=== PATIENT | female | born 1965 | race Caucasian/White ===

== ENCOUNTER 2017-01-03 12:27 | Inpatient (IN) | payer BC ==
[~2017-01-03] VITALS: Ht 172.7 cm; Wt 142.4 kg
[2017-01-03] MEDS ORDERED: SODIUM CHLORIDE 0.9% 1000ML 1,000 ML IV STA (12:47)
[2017-01-03] MEDS ORDERED: ONDANSETRON INJ 2 MG/ML 2 ML VIAL IV STA (12:47)
[2017-01-03] MEDS ORDERED: CEFOXITIN 2000MG/60 ML D5W IV STA (12:50)
[2017-01-03] MEDS ORDERED: FENTANYL CITRATE INJ 50 MCG/1 ML 2 ML VIAL IV PRN (13:00)
--- NOTE | 2017-01-03 13:16 | DIAGNOSTIC IMAGING REPORT ---
CHEST ONE VIEW PORTABLE CLINICAL HISTORY: Pain, radiating to the abdomen. COMPARISON STUDY: No previous studies for comparison. FINDINGS: The cardiac and mediastinal contours are normal. There is no evidence of focal pulmonary consolidation. There is no evidence of failure. No pleural effusions are visualized.[ No free intraperitoneal air is visualized. IMPRESSION: No active disease in the chest. Electronically signed by: Matthieu Fair M.D. 01/03/2017 1:14 PM Dictated Date/Time: 01/03/2017 1:14 PM
[2017-01-03 13:35] LABS: BASO % 0.2 %; BASO ABS # 0.02 K/uL (0-0.2); COMPLETE YES; EOS % 0.3 %; HEMATOCRIT 40.3 % (37-47); IG% 0.2 %; LYMPH % 16.4 %; LYMPH ABS # 1.79 K/uL (1.2-3.4); MEAN CELL VOLUME 86.3 fL (80-100); MEAN CORPUSCULAR HEMOGLOBIN 29.6 pg (25-34); MEAN CORPUSCULAR HGB CONC 34.2 g/dl (32-36); MEAN PLATELET VOLUME 9.4 fL (7.4-10.4); MONO % 6.1 %; NEUT % 76.8 %; PLATELET COUNT 249 K/uL (130-400); RED BLOOD COUNT 4.67 M/uL (4.2-5.4); WHITE BLOOD COUNT 10.94 K/uL (4.8-10.8)
[2017-01-03 13:42] LABS: ALT/SGPT 322 U/L (12-78); BLOOD UREA NITROGEN 15 mg/dl (7-18); BUN/CREATININE RATIO 16.5 (10-20); CARBON DIOXIDE 28 mmol/L (21-32); CHLORIDE 103 mmol/L (98-107); CREATININE 0.88 mg/dl (0.60-1.20); GLUCOSE 103 mg/dl (70-99); POTASSIUM 3.9 mmol/L (3.5-5.1); SODIUM 136 mmol/L (136-145)
[2017-01-03] MEDS ORDERED: OMEP10CA4 PO (13:46)
[2017-01-03] MEDS ORDERED: LISI10TA PO (13:46)
[2017-01-03 13:48] LABS: ALKALINE PHOSPHATASE 126 U/L (45-117); AMYLASE 653 U/L (25-115); AST/SGOT 494 U/L (15-37); CKMB/CK RATIO 0.7 (0-3.0)
[2017-01-03 13:53] LABS: PROTHROMBIN TIME (PATIENT) 10.2 SECONDS (9.0-12.0)
[2017-01-03] MEDS ORDERED: FAMOTIDINE IV INJ 20 MG in DEXTROSE 5% 100ML 100 ML IV STA (14:14)
[2017-01-03] MEDS ORDERED: PANTOprazole INJ 40 MG in SYRINGE 0 ML IV ONE (14:15)
[2017-01-03 14:20] LABS: PREG INTERNAL NEGATIVE QC NEG CLEAR BACKGROUND; PREG INTERNAL POSITIVE QC POS CONTROL LINE
--- NOTE | 2017-01-03 14:43 | EMERGENCY ROOM VISIT NOTE ---
History Report prepared by Frances: Bobo Kelley Under the Supervision of: Dr. Donovan Crews D.O. First contact with patient: 12:42 Chief Complaint: REFERRED BY DOCTOR Stated Complaint: REF'D BY DR FOR GALLBLADDER History of Present Illness The patient is a 51 year old female who presents to the Emergency Room with complaints of constant upper abdominal pain beginning last night. She had an ultrasound today and was referred to the ED for concern of possible gallbladder attack. She states that she has been having gall blader attack-like symptoms for about seven months. The patient has been taking Omeprazole for her symptoms which usually improves her pain. She also complains of right sided back pain. She vomited once last night and once this morning. The patient has a history of and appendectomy. Her LNMP was two weeks ago. She denies any shortness of breath. Source of History: patient Onset: Last night Position: abdomen (upper) Timing: constant Modifying Factors (Relieving): other (Omeprazole) Associated Symptoms: + vomiting, + back pain (right sided), No SOB Review of Systems See HPI for pertinent positives & negatives. A total of 10 systems reviewed and were otherwise negative. Past Medical & Surgical Medical Problems: (1) HTN (hypertension) Surgical Problems: (1) Hx of appendectomy (2) Previous section Family History No pertinent family history stated. Social History Smoking Status: Never Smoker Current/Historical Medications Scheduled Lisinopril (Prinivil), 10 MG PO DAILY Omeprazole (Prilosec), 10 MG PO DAILY Allergies Coded Allergies: Aspirin (Verified Allergy, Unknown, PT CAN TAKE IBUPROFEN AT HOME, 01/03/17 ) Penicillins (Verified Allergy, Unknown, 01/03/17) Physical Exam Vital Signs Date Time Temp Pulse Resp B/P (MAP) Pulse Ox O2 Delivery O2 Flow Rate FiO2 01/03/17 13:02 88 01/03/17 12:39 36.8 76 20 151/88 96 Room Air Physical Exam GENERAL: Patient is awake, alert, and in no acute distress. Patient is resting comfortably and showing no signs of anxiety EYES: The conjunctivae are clear. The pupils are round and reactive. EARS, NOSE, MOUTH AND THROAT: The nose is without any evidence of any deformity. Mucous membranes are moist tongue is midline NECK: The neck is nontender and supple. RESPIRATORY: Normal respiratory effort is noted there is no evidence of wheezing rhonchi or rales CARDIOVASCULAR: Regular rate and rhythm noted there no murmurs rubs or gallops normal S1 normal S2 GASTROINTESTINAL: Mildly distended but soft. RUQ tenderness to palpation. No guarding or rigidity noted. MUSCULOSKELETAL/EXTREMITIES: There is no evidence of gross deformity full range of motion is noted in the hips and shoulders SKIN: There is no obvious evidence of any rash. There are no petechiae, pallor or cyanosis noted. NEUROLOGIC: Patient is awake alert and oriented x3. Medical Decision & Procedures ER Provider Diagnostic Interpretation: X-ray results as stated below per interpretation by me and the radiologist. CHEST ONE VIEW PORTABLE FINDINGS: The cardiac and mediastinal contours are normal. There is no evidence of focal pulmonary consolidation. There is no evidence of failure. No pleural effusions are visualized.[ No free intraperitoneal air is visualized. IMPRESSION: No active disease in the chest. Electronically signed by: Matthieu Fair M.D. 01/03/2017 1:14 PM Laboratory Results 01/03/17 13:06 Red Blood Count 4.67, Mean Corpuscular Volume 86.3, Mean Corpuscular Hemoglobin 29.6, Mean Corpuscular Hemoglobin Concent 34.2, Mean Platelet Volume 9.4, Neutrophils (%) (Auto) 76.8, Lymphocytes (%) (Auto) 16.4, Monocytes (%) (Auto) 6.1, Eosinophils (%) (Auto) 0.3, Basophils (%) (Auto) 0.2, Neutrophils # (Auto) 8.41, Lymphocytes # (Auto) 1.79, Monocytes # (Auto) 0.67, Eosinophils # (Auto) 0.03, Basophils # (Auto) 0.02 01/03/17 13:06 Test 01/03/17 13:06 White Blood Count 10.94 K/uL (4.8-10.8) Red Blood Count 4.67 M/uL (4.2-5.4) Hemoglobin 13.8 g/dL (12.0-16.0) Hematocrit 40.3 % (37-47) Mean Corpuscular Volume 86.3 fL (80-100) Mean Corpuscular Hemoglobin 29.6 pg (25-34) Mean Corpuscular Hemoglobin Concent 34.2 g/dl (32-36) Platelet Count 249 K/uL (130-400) Mean Platelet Volume 9.4 fL (7.4-10.4) Neutrophils (%) (Auto) 76.8 % Lymphocytes (%) (Auto) 16.4 % Monocytes (%) (Auto) 6.1 % Eosinophils (%) (Auto) 0.3 % Basophils (%) (Auto) 0.2 % Neutrophils # (Auto) 8.41 K/uL (1.4-6.5) Lymphocytes # (Auto) 1.79 K/uL (1.2-3.4) Monocytes # (Auto) 0.67 K/uL (0.11-0.59) Eosinophils # (Auto) 0.03 K/uL (0-0.5) Basophils # (Auto) 0.02 K/uL (0-0.2) RDW Standard Deviation 41.7 fL (36.4-46.3) RDW Coefficient of Variation 13.2 % (11.5-14.5) Immature Granulocyte % (Auto) 0.2 % Immature Granulocyte # (Auto) 0.02 K/uL (0.00-0.02) Prothrombin Time 10.2 SECONDS (9.0-12.0) Prothromb Time International Ratio 1.0 (0.9-1.1) Activated Partial Thromboplast Time 26.1 SECONDS (21.0-31.0) Partial Thromboplastin Ratio 1.0 Anion Gap 5.0 mmol/L (3-11) Est Creatinine Clear Calc Drug Dose 116.3 ml/min Estimated GFR () 89.4 Estimated GFR (Non- 77.2 BUN/Creatinine Ratio 16.5 (10-20) Calcium Level 9.0 mg/dl (8.5-10.1) Total Bilirubin 2.0 mg/dl (0.2-1) Direct Bilirubin 1.2 mg/dl (0-0.2) Aspartate Amino Transf (AST/SGOT) 494 U/L (15-37) Alanine Aminotransferase (ALT/SGPT) 322 U/L (12-78) Alkaline Phosphatase 126 U/L (45-117) Total Creatine Kinase 177 U/L (26-192) Creatine Kinase MB 1.2 ng/ml (0.5-3.6) Creatine Kinase MB Ratio 0.7 (0-3.0) Troponin I < 0.015 ng/ml (0-0.045) Total Protein 7.4 gm/dl (6.4-8.2) Albumin 3.5 gm/dl (3.4-5.0) Amylase Level 653 U/L (25-115) Lipase 8805 U/L (73-393) Human Chorionic Gonadotropin, Qual NEG (NEG) Laboratory results per my review. Medications Administered Medications (Trade) Dose Ordered Sig/Tang Route Start Time Stop Time Status Last Admin Dose Admin Fentanyl Citrate (Fentanyl Inj) 100 mcg Q20M PRN IV 01/03/17 13:00 01/17/17 12:59 01/03/17 13:30 100 MCG Sodium Chloride 1,000 ml @ 999 mls/hr Q1H1M STAT IV 01/03/17 12:47 01/03/17 13:47 DC 01/03/17 13:24 999 MLS/HR Ondansetron HCl (Zofran Inj) 4 mg NOW STAT IV 01/03/17 12:47 01/03/17 12:50 DC 01/03/17 13:30 4 MG Cefoxitin Sodium (Mefoxin 2000mg/ 60 ml D5W) 2,000 mg NOW STAT IV 01/03/17 12:50 01/03/17 12:51 DC 01/03/17 13:30 2,000 MG ECG Indication: abdominal pain Rate (beats per minute): 65 Rhythm: normal sinus Findings: no acute ischemic change, no ectopy Comparison ECG Date: no prior available ED Course 1245: The patient was evaluated in room A9B. A complete history and physical examination were performed. 1247: Ordered Zofran Inj 4 mg IV, NSS 1,000 ml @ 999 mls/hr IV. 1250: Ordered Mefoxin 2000 mg/60 mL D5W 2000 mg IV. 1300: Ordered Fentanyl Inj 100 mcg IV. 1414: Ordered Famotidine 20 mg/Dextrose 102 mL @ 200 mL/hr IV, Pantoprazole Sodium 40 mg/Syringe 10 mL @ 5 mL/min IV. Medical Decision Differential diagnosis: Etiologies such as appendicitis, diverticulitis, PUD, biliary pathology, UTI, pancreatitis, obstruction, mesenteric ischemia, aortic pathology, infections, inflammatory bowel disease, renal colic, as well as others were entertained. Nursing notes reviewed. Patient's ultrasound which was done earlier today was also reviewed. The patient is a 51-year-old female who has had intermittent right-sided abdominal pain for the last few months. She was seen and worked up for this previously but no definite diagnosis can be found. Initially she was felt to be suffering from peptic ulcer disease. She was seen at the [facility] today and was sent to the emergency department after her ultrasound revealed signs of cholecystitis. The patient was treated with IV fluids IV pain medicine and IV antiemetics. She was also given IV antibiotic. On subsequent reevaluation she was feeling much better. I discussed the patient's laboratory and radiographic studies with her. She was also found have signs of pancreatitis on laboratory studies. Her pain was significantly improved. Her common bile duct on the ultrasound was not enlarged so I think this could represent a recently passed gallstone. This would explain with the patient is feeling much better. I discussed the patient's condition with the on-call general surgeon. I also discussed his case with the on-call [facility] hospitalist. They have agreed to evaluate the patient in the emergency apartment for further management and disposition. The patient may require further studies such as an MRCP or ERCP to further evaluate for common bile duct abnormality prior to cholecystectomy. Consults Time Called: 1250 Consulting Physician: Dr. Kennedy -General Surgery Returned Call: 1250 I discussed the patient's case with Dr. Kennedy. He recommends consultation after receiving laboratory work. 1413: I spoke with Dr. Kennedy. He recommends admission to the hospital and he will consult on the patient. Additional Consults: Time Called: 1420 Consulted Physician: Dr. Ugarte -[facility] Returned Call: [phone] Additional Comments: I discussed the patient's case with Dr. Ugarte. The patient will be evaluated for further management. Impression Primary Impression: RUQ abdominal pain Additional Impressions: Pancreatitis Cholecystitis Scribe Attestation The scribe's documentation has been prepared under my direction and personally reviewed by me in its entirety. I confirm that the note above accurately reflects all work, treatment, procedures, and medical decision making performed by me. Departure Information Dispostion Being Evaluated By Hospitalist Referrals Sandy Shoemaker M.D. (PCP) Patient Instructions My [facility] Problem Qualifiers Additional Impressions: Pancreatitis Chronicity: acute Pancreatitis type: biliary Acute pancreatitis complication: unspecified Qualified Codes: K85.10 - Biliary acute pancreatitis without necrosis or infection
[2017-01-03] MEDS ORDERED: MAGNESIUM HYDROXIDE SUSP 30 ML UDC PO PRN (14:45)
[2017-01-03] MEDS ORDERED: ONDANSETRON INJ 2 MG/ML 2 ML VIAL IV PRN (14:45)
[2017-01-03] MEDS ORDERED: MoRPHine SULFATE 4 MG/ML 1 ML CARP\\VIAL IV PRN (14:45)
[2017-01-03] MEDS ORDERED: ALUMINUM/MAGNESIUM/SIMETH (MAALOX MAX) 30 ML UDC PO PRN (14:45)
--- NOTE | 2017-01-03 15:31 | HISTORY & PHYSICAL EXAMINATION ---
DATE OF ADMISSION: 01/03/2017 CHIEF COMPLAINT: Right upper quadrant abdominal pain. HISTORY OF PRESENT ILLNESS: This is a 51-year-old female with past medical history significant for hypertension, morbid obesity, presents with right upper quadrant abdominal pain. The patient says since she ate a cheeseburger last night she noticed significant right upper quadrant abdominal pain. She took her omeprazole but the pain did not go away. It was about 10/10 in severity, radiating to her back associated with nausea and vomited 3 times. She went to family doctor today where ultrasound was done which showed gallstones and possible cholecystitis and she was advised to come to the ER. Currently, pain is better. Denies any fever or chills. She was short of breath at onset of pain. Denies any chest pain, no headaches, no blurred vision, no dizziness, no sore throat. Normal bowel and bladder movements. No skin rash, no swelling in the legs. The patient says she had a similar kind of attack in May when she was in [facility]. At that time labs were done which was unremarkable and she was told she has peptic ulcer disease. She was prescribed omeprazole and then she had a couple more attacks, but they were not as severe as last one she had last night. Currently, she is resting comfortably and hemodynamically stable. ALLERGIES: ASPIRIN AND PENICILLIN. PAST MEDICAL HISTORY: As mentioned above. PAST SURGICAL HISTORY: , cervical colposcopy, ligation of the oviduct, appendectomy. MEDICATIONS: The patient is on lisinopril 10 mg p.o. daily, omeprazole 20 mg p.o. daily. FAMILY HISTORY: Significant for father had heart disorder. Mother had mild CA. Father stroke, sister has history of bipolar. SOCIAL HISTORY: . No smoking history. Alcohol occasionally. No drug abuse. REVIEW OF SYMPTOMS: As per HPI. Rest of review of symptoms negative. PHYSICAL EXAMINATION: GENERAL: The patient is morbidly obese, not in distress. VITAL SIGNS: Temperature 36.8, pulse 88, respiratory rate 20, blood pressure 151/88, oxygen 96% on room air. HEAD, EYES, EARS, NOSE, AND THROAT: No pallor, no icterus. Pupils equal, round, and reactive to light. NECK: No JVD, no neck masses, no carotid bruits. CARDIOVASCULAR: S1, S2, heart regular rate and rhythm, no murmur, no gallop. RESPIRATORY SYSTEM: Normal AP diameter. No accessory muscle use. No wheezing, no crackles. ABDOMEN: Soft, bowel sounds present. Right upper quadrant and epigastric tenderness present. No guarding, no rigidity, no distention. CENTRAL NERVOUS SYSTEM: Cranial nerves II-XII grossly intact. Nonfocal. EXTREMITIES: No edema, chronic lower extremity edema seen. LABORATORY DATA: Sodium 136, potassium 3.9, chloride 103, bicarb 28, BUN 15, creatinine 0.8, serum glucose 103, calcium 9, total bilirubin 2, direct bilirubin 1.2, AST 494, ALT 322, alkaline phosphatase 126. Total creatine kinase 127. Troponin I less than 0.015, amylase 655, lipase 3805. WBC 10.9, hemoglobin 13.8, hematocrit 40.3, platelets 249. PT 10.2, INR 1, PTT 26.1. CHEST X-RAY: No acute disease in the chest. EKG: Normal sinus rhythm with rate of 65. No acute ST changes seen. Ultrasound done as outpatient no unofficial report, but has cholelithiasis and gallbladder wall thickening, acute cholecystitis needs excluded. ASSESSMENT AND PLAN: A 51-year-old female who presents with right upper quadrant pain with probable acute cholecystitis. 1. Acute cholecystitis, ultrasound done as outpatient showed cholelithiasis with gallbladder thickening, possible cholecystitis and also most likely gallbladder pancreatitis. Lipase is elevated at 8,000. Will admit to medical floor. Place on aggressive IV fluids, IV antiemetics, and IV pain medications, IV Cipro and Flagyl for cholecystitis, n.p.o. except meds. We will also do MRCP to rule out any common bile duct stone and consult general surgery. Monitor on the medical floor. 3. History of hypertension. Continue lisinopril. Will monitor the blood pressure. 4. Gastroesophageal reflux disease. Will place on IV Pepcid. 5. Deep venous thrombosis prophylaxis. SCDs and heparin subQ for now. 6. Disposition. Admit to medical floor. Expect to discharge home and follow with the family doctor. LEVEL 1 FULL CODE. MTDD
--- NOTE | 2017-01-03 15:58 | DIAGNOSTIC IMAGING REPORT ---
MRCP CLINICAL HISTORY: Gallstone pancreatitis. Elevated LFTs. Evaluate for common bile duct calculus. COMPARISON STUDY: Ultrasound study dated 01/03/2017 FINDINGS: Multiple gallstones are visualized. There is gallbladder wall thickening and pericholecystic fluid. The findings are suggestive of acute cholecystitis. No common bile duct calculi are visualized. There is no intrahepatic biliary ductal dilatation. There is no pancreatic ductal dilatation. Mild pancreatic edema is suspected suggesting mild pancreatitis. The spleen is enlarged measuring 12.3 cm. The common bile duct measures 5 mm. IMPRESSION: 1. Cholelithiasis, gallbladder wall thickening, and pericholecystic fluid. The findings are suggestive of acute cholecystitis. 2. No evidence of intrarectal hepatic biliary ductal dilatation. The common buttock measures 5 mm 3. No common bile duct calculi identified 4. Normal caliber pancreatic duct. Possible pancreatic edema. This may indicate pancreatitis 5. Mild splenomegaly Electronically signed by: Matthieu Fair M.D. 01/03/2017 3:56 PM Dictated Date/Time: 01/03/2017 3:52 PM
[2017-01-03 16:22] VITALS: O2SAT 97; Ht 172.7 cm; Wt 142.4 kg
[2017-01-03] MEDS: LACTATED RINGER'S 1000ML 1,000 ML IV SCH ×2 (16:43→19:45)
[2017-01-03] MEDS: METRONIDAZOLE / NSS 500 MG in PREMIXED NSS 100 ML IV SCH ×2 (16:44→23:30)
--- NOTE | 2017-01-03 17:17 | Medical Consult ---
Consultation Date of Consultation: Jan 03, 2017. Attending Physician: José Ugarte MD Reason for Consultation: gallstone pancreatitis History of Present Illness 51 year old female admitted for gallstone pancreatitis. She started having pain yesterday afternoon in her RUQ and epigastrium. She developed nausea and vomiting. Went to [facility] this morning, US ordered and revealed cholelithiasis with cholecystitis. Sent to ED and labs revealed pancreatitis and tbili and LFT elevation. She is now feeling a little better. MRCP was performed and showed no choledocholithiasis but evidence of cholecystitis and pancreatitis. She reports 4-5 prior episodes of post prandial pain, usually associated with fatty or spicy foods. Denies fevers. She at [employer] for lunch and a cheeseburger for dinner prior to this episode. Past Medical/Surgical History Past Medical History: HTN, obesity Past Surgical History: open appendectomy, Family History noncontributory Social History Smoking Status: Never Smoker Allergies Coded Allergies: Aspirin (Verified Allergy, Unknown, PT CAN TAKE IBUPROFEN AT HOME, 01/03/17 ) Penicillins (Verified Allergy, Unknown, 01/03/17) Home Medications Active Reported Prilosec (Omeprazole) 10 Mg Cap 10 Mg PO DAILY Prinivil (Lisinopril) 10 Mg Tab 10 Mg PO DAILY Current Inpatient Medications Current Inpatient Medications Medications (Trade) Dose Ordered Sig/Tang Route Start Time Stop Time Status Last Admin Dose Admin Acetaminophen (Tylenol Tab) 650 mg Q4H PRN PO 01/03/17 14:45 02/02/17 14:44 Al Hydrox/Mg Hydrox/Simethicone (Maalox Max Susp) 15 ml Q4H PRN PO 01/03/17 14:45 02/02/17 14:44 Magnesium Hydroxide (Milk Of Magnesia Susp) 30 ml Q6H PRN PO 01/03/17 14:45 02/02/17 14:44 Ondansetron HCl (Zofran Inj) 4 mg Q6H PRN IV 01/03/17 14:45 02/02/17 14:44 Heparin Sodium (Porcine) (Heparin Sq 5000 Unit/0.5ml) 5,000 unit Q12H SQ 01/03/17 18:00 02/02/17 17:59 Lactated Ringer's 1,000 ml @ 200 mls/hr Q5H IV 01/03/17 14:45 02/02/17 14:44 01/03/17 16:43 200 MLS/HR Morphine Sulfate (MoRPHine SULFATE INJ) 3 mg Q3HWA PRN IV 01/03/17 14:45 01/17/17 14:44 Famotidine 20 mg/ Dextrose 102 ml @ 200 mls/hr Q12H IV 01/04/17 04:00 02/03/17 03:59 Ciprofloxacin/ Dextrose 400 mg/ Prmx 200 ml @ 100 mls/hr Q12@0600,1800 IV 01/03/17 18:00 01/13/17 17:59 Metronidazole 500 mg/Prmx 100 ml @ 100 mls/hr Q8@0000,0800,1600 IV 01/03/17 16:24 01/13/17 16:23 01/03/17 16:44 100 MLS/HR Lisinopril (Zestril Tab) 10 mg DAILY PO 01/04/17 09:00 02/03/17 08:59 Review of Systems Constitutional: No fever, No chills, No sweats, No weight loss, No weakness, No fatigue, No problem reported Eyes: No worsening of vision, No eye pain, No redness, No discharge, No diplopia, No problem reported ENT: No hearing loss, No unusual epistaxis, No nasal symptoms, No sore throat, No tinnitus, No dental problems, No trouble swallowing, No problem reported Respiratory: No cough, No sputum, No wheezing, No shortness of breath, No dyspnea on exertion, No dyspnea at rest, No hemoptysis, No problem reported Cardiovascular: No chest pain, No orthopnea, No PND, No edema, No claudication , No palpitations, No problem reported Abdomen: + pain, + nausea, + vomiting, No diarrhea, No constipation Musculoskeletal: No joint pain, No muscle pain, No swelling, No calf pain, No problem reported Neurologic: No memory loss, No paralysis, No weakness, No numbness/tingling, No vertigo, No balance problems, No problem reported Endocrine: No fatigue, No excessive thirst, No excessive urination, No problem reported Hematologic / Lymphatic: No abnormal bleeding/bruising, No clotting problems, No swollen lymph nodes, No night sweats, No problem reported Integumentary: No rash, No itch, No new/changing skin lesions, No color change , No bleeding, No problem reported Allergic / Immunologic: No environmental allergies, No seasonal allergies, No pet sensitivities, No food allergies, No hives, No frequent infections, No poor healing, No prolonged convalescence, No problem reported Physical Exam Date Time Temp Pulse Resp B/P (MAP) Pulse Ox O2 Delivery O2 Flow Rate FiO2 01/03/17 16:22 97 Room Air 01/03/17 16:01 64 20 124/73 97 01/03/17 14:20 64 20 151/98 98 Room Air 01/03/17 13:02 88 01/03/17 12:39 36.8 76 20 151/88 96 Room Air General Appearance: WD/WN, no apparent distress, + obese Head: normocephalic, atraumatic Eyes: normal inspection, PERRL, EOMI ENT: normal ENT inspection, hearing grossly normal Neck: supple, no adenopathy, thyroid normal Respiratory/Chest: chest non-tender, lungs clear, normal breath sounds, no respiratory distress Cardiovascular: regular rate, rhythm, no edema, no gallop, no JVD, no murmur Abdomen/GI: normal bowel sounds, soft, + tenderness, + pertinent finding (TTP in RUQ and epigastrium, positive House's sign. 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, no motor/sensory deficits, alert, oriented x 3 Skin: normal color, warm/dry, no rash Lymphatic: no adenopathy Laboratory Results Last 24 Hours Test 01/03/17 13:06 White Blood Count 10.94 K/uL Red Blood Count 4.67 M/uL Hemoglobin 13.8 g/dL Hematocrit 40.3 % Mean Corpuscular Volume 86.3 fL Mean Corpuscular Hemoglobin 29.6 pg Mean Corpuscular Hemoglobin Concent 34.2 g/dl Platelet Count 249 K/uL Mean Platelet Volume 9.4 fL Neutrophils (%) (Auto) 76.8 % Lymphocytes (%) (Auto) 16.4 % Monocytes (%) (Auto) 6.1 % Eosinophils (%) (Auto) 0.3 % Basophils (%) (Auto) 0.2 % Neutrophils # (Auto) 8.41 K/uL Lymphocytes # (Auto) 1.79 K/uL Monocytes # (Auto) 0.67 K/uL Eosinophils # (Auto) 0.03 K/uL Basophils # (Auto) 0.02 K/uL RDW Standard Deviation 41.7 fL RDW Coefficient of Variation 13.2 % Immature Granulocyte % (Auto) 0.2 % Immature Granulocyte # (Auto) 0.02 K/uL Prothrombin Time 10.2 SECONDS Prothromb Time International Ratio 1.0 Activated Partial Thromboplast Time 26.1 SECONDS Partial Thromboplastin Ratio 1.0 Sodium Level 136 mmol/L Potassium Level 3.9 mmol/L Chloride Level 103 mmol/L Carbon Dioxide Level 28 mmol/L Anion Gap 5.0 mmol/L Blood Urea Nitrogen 15 mg/dl Creatinine 0.88 mg/dl Est Creatinine Clear Calc Drug Dose 116.3 ml/min Estimated GFR () 89.4 Estimated GFR (Non- 77.2 BUN/Creatinine Ratio 16.5 Random Glucose 103 mg/dl Calcium Level 9.0 mg/dl Total Bilirubin 2.0 mg/dl Direct Bilirubin 1.2 mg/dl Aspartate Amino Transf (AST/SGOT) 494 U/L Alanine Aminotransferase (ALT/SGPT) 322 U/L Alkaline Phosphatase 126 U/L Total Creatine Kinase 177 U/L Creatine Kinase MB 1.2 ng/ml Creatine Kinase MB Ratio 0.7 Troponin I < 0.015 ng/ml Total Protein 7.4 gm/dl Albumin 3.5 gm/dl Amylase Level 653 U/L Lipase 8805 U/L Human Chorionic Gonadotropin, Qual NEG BILIARY ULTRASOUND CLINICAL HISTORY: Upper quadrant abdominal pain COMPARISON STUDY: No previous studies for comparison. FINDINGS: The pancreas appears normal as visualized. No focal hepatic masses were evident. There is no right-sided hydronephrosis. There is no intra or extrahepatic biliary ductal dilatation. The common bile duct measured 5 mm. Multiple gallstones were visualized. There is mild gallbladder wall thickening. IMPRESSION: Cholelithiasis and gallbladder wall thickening. In the setting of right upper quadrant abdominal pain, acute cholecystitis cannot be excluded. If deemed clinically necessary, correlation with a nuclear medicine hepatobiliary study could be obtained in follow-up to assess cystic duct patency Electronically signed by: Matthieu Fair M.D. 01/03/2017 11:55 AM Dictated Date/Time: 01/03/2017 11:53 AM MRCP CLINICAL HISTORY: Gallstone pancreatitis. Elevated LFTs. Evaluate for common bile duct calculus. COMPARISON STUDY: Ultrasound study dated 01/03/2017 FINDINGS: Multiple gallstones are visualized. There is gallbladder wall thickening and pericholecystic fluid. The findings are suggestive of acute cholecystitis. No common bile duct calculi are visualized. There is no intrahepatic biliary ductal dilatation. There is no pancreatic ductal dilatation. Mild pancreatic edema is suspected suggesting mild pancreatitis. The spleen is enlarged measuring 12.3 cm. The common bile duct measures 5 mm. IMPRESSION: 1. Cholelithiasis, gallbladder wall thickening, and pericholecystic fluid. The findings are suggestive of acute cholecystitis. 2. No evidence of intrarectal hepatic biliary ductal dilatation. The common buttock measures 5 mm 3. No common bile duct calculi identified 4. Normal caliber pancreatic duct. Possible pancreatic edema. This may indicate pancreatitis 5. Mild splenomegaly Electronically signed by: Matthieu Fair M.D. 01/03/2017 3:56 PM Dictated Date/Time: 01/03/2017 3:52 PM Assessment & Plan 51 year old female with cholelithiasis, cholecystitis, and mild gallstone pancreatitis. She also had elevated bilirubin and LFT"s, but no ductal dilitation and MRCP without choledocholithiasis, so likely she passed a small stone. Her symptoms are improving. Plan appreciate medicine admission npo, ivf's abx Await resolution of symptoms from pancreatitis and downtrending of liver enzymes plan for laparoscopic cholecystectomy with possible intraoperative cholangiogram this stay or in short interval follow up risks of surgery were discussed to include but not limited to bleeding, infection, damage to common bile duct, retained stone, bile leak, conversion to open, need for future or more extensive surgery, damage to surrounding structures, and risks of anesthesia plan of care discussed, all questions answered, patient expressed understanding and agrees to proceed with plan of care as stated surgery will follow, call with questions or concerns Camilo Kennedy, DO
[2017-01-03] MEDS: HEPARIN SOD 5000 UNIT/0.5 ML CARP SQ SCH (18:00)
[2017-01-03] MEDS: CIPROFLOXACIN / D5W 400 MG in PREMIXED IN D5W 200 ML IV SCH (18:08)
[2017-01-03] MEDS: ACETAMINOPHEN 325 MG TAB PO PRN (18:12)
[2017-01-03 23:20] VITALS: BP 112/69; PULSE 64; TEMP 36.5; O2SAT 95
[2017-01-04] MEDS: LACTATED RINGER'S 1000ML 1,000 ML IV SCH ×5 (00:50→22:20)
[2017-01-04 01:00] LABS: URINE APPEARANCE CLEAR (CLEAR); URINE BILIRUBIN NEG (NEG); URINE COLOR DK YELLOW; URINE NITRITE NEG (NEG); URINE SPECIFIC GRAVITY 1.022 (1.000-1.030); UROBILINOGEN NEG (NEG)
[2017-01-04 01:04] LABS: MANUAL MICROSCOPIC REQUIRED? NO; REVIEW REQ? NO
[2017-01-04] MEDS: FAMOTIDINE IV INJ 20 MG in DEXTROSE 5% 100ML 100 ML IV SCH ×2 (04:26→16:41)
[2017-01-04] MEDS: CIPROFLOXACIN / D5W 400 MG in PREMIXED IN D5W 200 ML IV SCH ×2 (05:31→19:16)
[2017-01-04] MEDS: HEPARIN SOD 5000 UNIT/0.5 ML CARP SQ SCH ×2 (05:36→19:18)
[2017-01-04] MEDS: ACETAMINOPHEN 325 MG TAB PO PRN ×3 (05:37→19:21)
[2017-01-04 07:01] LABS: BASO % 0.4 %; BASO ABS # 0.02 K/uL (0-0.2); COMPLETE YES; EOS % 1.6 %; HEMATOCRIT 36.8 % (37-47); IG% 0.4 %; MEAN CELL VOLUME 88.5 fL (80-100); MEAN PLATELET VOLUME 9.3 fL (7.4-10.4); MONO % 6.7 %; NEUT % 63.9 %; PLATELET COUNT 192 K/uL (130-400); RED BLOOD COUNT 4.16 M/uL (4.2-5.4); WHITE BLOOD COUNT 5.55 K/uL (4.8-10.8)
[2017-01-04 07:14] VITALS: BP 132/77; PULSE 69; TEMP 36.7; O2SAT 95
[2017-01-04] MEDS: METRONIDAZOLE / NSS 500 MG in PREMIXED NSS 100 ML IV SCH ×2 (08:59→15:43)
[2017-01-04 09:05] LABS: BUN/CREATININE RATIO 13.7 (10-20); CALCIUM 8.4 mg/dl (8.5-10.1); CREATININE 0.87 mg/dl (0.60-1.20); MAGNESIUM 2.2 mg/dl (1.8-2.4)
[2017-01-04] MEDS: LISINOPRIL 10 MG TAB PO SCH (09:57)
--- NOTE | 2017-01-04 11:39 | Surgery Progress Note ---
Surgery Progress Note Date of Service Jan 04, 2017. Subjective 51 year old female with cholelithiasis with cholecystitis and gallstone pancreatitis. MRCP negative yesterday. Labs and symptoms improving today, still some epigastric discomfort. Otherwise feels better. Objective Vital Signs: Date Time Temp Pulse Resp B/P (MAP) Pulse Ox O2 Delivery O2 Flow Rate FiO2 01/04/17 07:15 Room Air 01/04/17 07:14 36.7 69 18 132/77 (95) 95 Room Air 01/03/17 23:28 Room Air 01/03/17 23:20 36.5 64 16 112/69 (83) 95 Room Air 01/03/17 20:20 Room Air 01/03/17 16:22 97 Room Air 01/03/17 16:01 64 20 124/73 97 01/03/17 14:20 64 20 151/98 98 Room Air 01/03/17 13:02 88 01/03/17 12:39 36.8 76 20 151/88 96 Room Air General Appearance: WD/WN, no apparent distress, + obese Head: normocephalic, atraumatic Neck: supple, no adenopathy, thyroid normal, no JVD, no carotid bruits, trachea midline Respiratory/Chest: chest non-tender, lungs clear, normal breath sounds, no respiratory distress, no accessory muscle use Cardiovascular: regular rate, rhythm, no edema, no gallop, no JVD, no murmur Abdomen: normal bowel sounds, non distended, soft, no organomegaly, no pulsatile mass, + tenderness (mild epigastric and RUQ tenderness, improved from yesterday), + pertinent finding (RLQ scar) Extremities: normal range of motion, non-tender, normal inspection, no pedal edema, no calf tenderness, normal capillary refill, pelvis stable Laboratory Results: Results Past 24 Hours Test 01/03/17 13:06 01/04/17 00:50 01/04/17 06:11 Range/Units White Blood Count 10.94 5.55 4.8-10.8 K/uL Red Blood Count 4.67 4.16 4.2-5.4 M/uL Hemoglobin 13.8 12.5 12.0-16.0 g/dL Hematocrit 40.3 36.8 37-47 % Mean Corpuscular Volume 86.3 88.5 80-100 fL Mean Corpuscular Hemoglobin 29.6 30.0 25-34 pg Mean Corpuscular Hemoglobin Concent 34.2 34.0 32-36 g/dl Platelet Count 249 192 130-400 K/uL Mean Platelet Volume 9.4 9.3 7.4-10.4 fL Neutrophils (%) (Auto) 76.8 63.9 % Lymphocytes (%) (Auto) 16.4 27.0 % Monocytes (%) (Auto) 6.1 6.7 % Eosinophils (%) (Auto) 0.3 1.6 % Basophils (%) (Auto) 0.2 0.4 % Neutrophils # (Auto) 8.41 3.55 1.4-6.5 K/uL Lymphocytes # (Auto) 1.79 1.50 1.2-3.4 K/uL Monocytes # (Auto) 0.67 0.37 0.11-0.59 K/uL Eosinophils # (Auto) 0.03 0.09 0-0.5 K/uL Basophils # (Auto) 0.02 0.02 0-0.2 K/uL RDW Standard Deviation 41.7 43.2 36.4-46.3 fL RDW Coefficient of Variation 13.2 13.5 11.5-14.5 % Immature Granulocyte % (Auto) 0.2 0.4 % Immature Granulocyte # (Auto) 0.02 0.02 0.00-0.02 K/uL Prothrombin Time 10.2 9.0-12.0 SECONDS Prothromb Time International Ratio 1.0 0.9-1.1 Activated Partial Thromboplast Time 26.1 21.0-31.0 SECONDS Partial Thromboplastin Ratio 1.0 Sodium Level 136 140 136-145 mmol/L Potassium Level 3.9 4.0 3.5-5.1 mmol/L Chloride Level 103 105 98-107 mmol/L Carbon Dioxide Level 28 31 21-32 mmol/L Anion Gap 5.0 4.0 3-11 mmol/L Blood Urea Nitrogen 15 12 7-18 mg/dl Creatinine 0.88 0.87 0.60-1.20 mg/dl Est Creatinine Clear Calc Drug Dose 116.3 117.7 ml/min Estimated GFR () 89.4 90.7 Estimated GFR (Non- 77.2 78.2 BUN/Creatinine Ratio 16.5 13.7 10-20 Random Glucose 103 108 70-99 mg/dl Calcium Level 9.0 8.4 8.5-10.1 mg/dl Total Bilirubin 2.0 0.7 0.2-1 mg/dl Direct Bilirubin 1.2 0.2 0-0.2 mg/dl Aspartate Amino Transf (AST/SGOT) 494 197 15-37 U/L Alanine Aminotransferase (ALT/SGPT) 322 231 12-78 U/L Alkaline Phosphatase 126 117 45-117 U/L Total Creatine Kinase 177 26-192 U/L Creatine Kinase MB 1.2 0.5-3.6 ng/ml Creatine Kinase MB Ratio 0.7 0-3.0 Troponin I < 0.015 0-0.045 ng/ml Total Protein 7.4 6.4 6.4-8.2 gm/dl Albumin 3.5 3.1 3.4-5.0 gm/dl Amylase Level 653 25-115 U/L Lipase 8805 765 73-393 U/L Human Chorionic Gonadotropin, Qual NEG NEG Urine Color DK YELLOW Urine Appearance CLEAR CLEAR Urine pH 6.0 4.5-7.5 Urine Specific [place] 1.022 1.000-1.030 Urine Protein NEG NEG Urine Glucose (UA) NEG NEG Urine Ketones TRACE NEG Urine Occult Blood NEG NEG Urine Nitrite NEG NEG Urine Bilirubin NEG NEG Urine Urobilinogen NEG NEG Urine Leukocyte Esterase NEG NEG Magnesium Level 2.2 1.8-2.4 mg/dl Assessment & Plan 51 year old female with cholelithiasis, cholecystitis, and mild gallstone pancreatitis. Symptoms and labs improving. Plan appreciate medicine management clear liquids today, NPO after midnight abx plan for laparoscopic cholecystectomy with possible intraoperative cholangiogram tomorrow risks of surgery were discussed to include but not limited to bleeding, infection, damage to common bile duct, retained stone, bile leak, conversion to open, need for future or more extensive surgery, damage to surrounding structures, and risks of anesthesia plan of care discussed, all questions answered, patient expressed understanding and agrees to proceed with plan of care as stated surgery will follow, call with questions or concerns Camilo Kennedy, DO
--- NOTE | 2017-01-04 14:11 | Progress Note ---
Internal Med Progress Note Date of Service: Jan 04, 2017. Provider Documentation: SUBJECTIVE: resting comfortably no nausea or abdominal pain afebrile no sob ok for surgery in am OBJECTIVE: Vital Signs-as noted below Exam: General-alert and awake. Not in distress. Obese ENT-normal hearing Neck-no neck masses Lungs-cta b/l no wheezing no crackles Heart-s1 and s2 heard regular rhythm, no murmurs Abdomen-soft bowel sounds present non tender no distension Extremities no erythema Neuro-alert and awake moves extremities Lab data as noted below. ASSESSMENT & PLAN: A 51-year-old female who presents with right upper quadrant pain with probable acute cholecystitis. 1. Acute cholecystitis, Gall stone pancreatitis ultrasound done as outpatient showed cholelithiasis with gallbladder thickening, possible cholecystitis and also most likely gallbladder pancreatitis. Lipase is elevated at 8,000. MRCP shows no cbd stone but consistent with cholecystitis and gall stone pancreatitis symptoms improved iv fluids, iv abx, antiemetics plan for lap darvin in am 3. History of hypertension. Continue lisinopril. Stable. Will monitor the blood pressure. 4. Gastroesophageal reflux disease. Will place on IV Pepcid. 5. Deep venous thrombosis prophylaxis. SCDs and heparin subQ for now. 6. Disposition. Monitor in medical floor. Expect to discharge home and follow with the family doctor. LEVEL 1 FULL CODE. DISPOSITION monitor in medical floor to be determined Vital Signs: Date Time Temp Pulse Resp B/P (MAP) Pulse Ox O2 Delivery O2 Flow Rate FiO2 01/04/17 07:15 Room Air 01/04/17 07:14 36.7 69 18 132/77 (95) 95 Room Air 01/03/17 23:28 Room Air 01/03/17 23:20 36.5 64 16 112/69 (83) 95 Room Air 01/03/17 20:20 Room Air 01/03/17 16:22 97 Room Air 01/03/17 16:01 64 20 124/73 97 01/03/17 14:20 64 20 151/98 98 Room Air Lab Results: Results Past 24 Hours Test 01/04/17 00:50 01/04/17 06:11 Range/Units Urine Color DK YELLOW Urine Appearance CLEAR CLEAR Urine pH 6.0 4.5-7.5 Urine Specific [place] 1.022 1.000-1.030 Urine Protein NEG NEG Urine Glucose (UA) NEG NEG Urine Ketones TRACE NEG Urine Occult Blood NEG NEG Urine Nitrite NEG NEG Urine Bilirubin NEG NEG Urine Urobilinogen NEG NEG Urine Leukocyte Esterase NEG NEG White Blood Count 5.55 4.8-10.8 K/uL Red Blood Count 4.16 4.2-5.4 M/uL Hemoglobin 12.5 12.0-16.0 g/dL Hematocrit 36.8 37-47 % Mean Corpuscular Volume 88.5 80-100 fL Mean Corpuscular Hemoglobin 30.0 25-34 pg Mean Corpuscular Hemoglobin Concent 34.0 32-36 g/dl Platelet Count 192 130-400 K/uL Mean Platelet Volume 9.3 7.4-10.4 fL Neutrophils (%) (Auto) 63.9 % Lymphocytes (%) (Auto) 27.0 % Monocytes (%) (Auto) 6.7 % Eosinophils (%) (Auto) 1.6 % Basophils (%) (Auto) 0.4 % Neutrophils # (Auto) 3.55 1.4-6.5 K/uL Lymphocytes # (Auto) 1.50 1.2-3.4 K/uL Monocytes # (Auto) 0.37 0.11-0.59 K/uL Eosinophils # (Auto) 0.09 0-0.5 K/uL Basophils # (Auto) 0.02 0-0.2 K/uL RDW Standard Deviation 43.2 36.4-46.3 fL RDW Coefficient of Variation 13.5 11.5-14.5 % Immature Granulocyte % (Auto) 0.4 % Immature Granulocyte # (Auto) 0.02 0.00-0.02 K/uL Sodium Level 140 136-145 mmol/L Potassium Level 4.0 3.5-5.1 mmol/L Chloride Level 105 98-107 mmol/L Carbon Dioxide Level 31 21-32 mmol/L Anion Gap 4.0 3-11 mmol/L Blood Urea Nitrogen 12 7-18 mg/dl Creatinine 0.87 0.60-1.20 mg/dl Est Creatinine Clear Calc Drug Dose 117.7 ml/min Estimated GFR () 90.7 Estimated GFR (Non- 78.2 BUN/Creatinine Ratio 13.7 10-20 Random Glucose 108 70-99 mg/dl Calcium Level 8.4 8.5-10.1 mg/dl Magnesium Level 2.2 1.8-2.4 mg/dl Total Bilirubin 0.7 0.2-1 mg/dl Direct Bilirubin 0.2 0-0.2 mg/dl Aspartate Amino Transf (AST/SGOT) 197 15-37 U/L Alanine Aminotransferase (ALT/SGPT) 231 12-78 U/L Alkaline Phosphatase 117 45-117 U/L Total Protein 6.4 6.4-8.2 gm/dl Albumin 3.1 3.4-5.0 gm/dl Lipase 765 73-393 U/L
[2017-01-04 15:09] VITALS: BP 129/81; PULSE 65; TEMP 37.1; O2SAT 94
[2017-01-04 16:30] VITALS: O2SAT 94
[2017-01-04 23:35] VITALS: BP 123/74; PULSE 59; TEMP 36.8; O2SAT 94
[2017-01-05] MEDS: METRONIDAZOLE / NSS 500 MG in PREMIXED NSS 100 ML IV SCH ×3 (00:14→16:39)
[2017-01-05] MEDS: ACETAMINOPHEN 325 MG TAB PO PRN (00:14)
[2017-01-05] MEDS: LACTATED RINGER'S 1000ML 1,000 ML IV SCH ×4 (02:26→20:32)
[2017-01-05] MEDS: FAMOTIDINE IV INJ 20 MG in DEXTROSE 5% 100ML 100 ML IV SCH ×2 (04:06→17:21)
[2017-01-05] MEDS: HEPARIN SOD 5000 UNIT/0.5 ML CARP SQ SCH ×2 (05:48→18:48)
[2017-01-05] MEDS: CIPROFLOXACIN / D5W 400 MG in PREMIXED IN D5W 200 ML IV SCH ×2 (05:55→19:30)
[2017-01-05 06:13] LABS: BASO % 0.4 %; BASO ABS # 0.02 K/uL (0-0.2); COMPLETE YES; EOS % 2.3 %; IG% 0.2 %; LYMPH % 35.5 %; LYMPH ABS # 1.89 K/uL (1.2-3.4); MEAN CORPUSCULAR HEMOGLOBIN 29.3 pg (25-34); MEAN CORPUSCULAR HGB CONC 32.5 g/dl (32-36); MONO % 7.7 %; NEUT % 53.9 %; PLATELET COUNT 181 K/uL (130-400); WHITE BLOOD COUNT 5.32 K/uL (4.8-10.8)
[2017-01-05 07:08] LABS: BUN/CREATININE RATIO 9.3 (10-20); CALCIUM 8.2 mg/dl (8.5-10.1); CREATININE 0.84 mg/dl (0.60-1.20); MAGNESIUM 2.3 mg/dl (1.8-2.4); POTASSIUM 3.8 mmol/L (3.5-5.1)
[2017-01-05 07:26] VITALS: BP 120/78; PULSE 58; TEMP 36.7; O2SAT 93
[2017-01-05] MEDS: LISINOPRIL 10 MG TAB PO SCH (09:00)
--- NOTE | 2017-01-05 10:35 | Surgery Progress Note ---
Surgery Progress Note Date of Service Jan 05, 2017. Subjective 51 year old female with cholelithiasis with cholecystitis and gallstone pancreatitis. MRCP negative. Labs and symptoms continue to improve, no pain. Objective Vital Signs: Date Time Temp Pulse Resp B/P (MAP) Pulse Ox O2 Delivery O2 Flow Rate FiO2 01/05/17 07:26 36.7 58 18 120/78 (92) 93 Room Air 01/05/17 00:05 Room Air 01/04/17 23:35 36.8 59 16 123/74 (90) 94 Room Air 01/04/17 16:30 94 Room Air 01/04/17 15:09 37.1 65 18 129/81 (97) 94 Room Air General Appearance: WD/WN, no apparent distress, + obese Head: normocephalic, atraumatic Neck: supple, no adenopathy, thyroid normal, no JVD, no carotid bruits, trachea midline Respiratory/Chest: chest non-tender, lungs clear, normal breath sounds, no respiratory distress, no accessory muscle use Cardiovascular: regular rate, rhythm, no edema, no gallop, no JVD, no murmur Abdomen: normal bowel sounds, non tender, non distended, soft, no organomegaly , no pulsatile mass Extremities: normal range of motion, non-tender, normal inspection, no pedal edema, no calf tenderness, normal capillary refill, pelvis stable Laboratory Results: Results Past 24 Hours Test 01/05/17 05:43 Range/Units White Blood Count 5.32 4.8-10.8 K/uL Red Blood Count 4.00 4.2-5.4 M/uL Hemoglobin 11.7 12.0-16.0 g/dL Hematocrit 36.0 37-47 % Mean Corpuscular Volume 90.0 80-100 fL Mean Corpuscular Hemoglobin 29.3 25-34 pg Mean Corpuscular Hemoglobin Concent 32.5 32-36 g/dl Platelet Count 181 130-400 K/uL Mean Platelet Volume 9.0 7.4-10.4 fL Neutrophils (%) (Auto) 53.9 % Lymphocytes (%) (Auto) 35.5 % Monocytes (%) (Auto) 7.7 % Eosinophils (%) (Auto) 2.3 % Basophils (%) (Auto) 0.4 % Neutrophils # (Auto) 2.87 1.4-6.5 K/uL Lymphocytes # (Auto) 1.89 1.2-3.4 K/uL Monocytes # (Auto) 0.41 0.11-0.59 K/uL Eosinophils # (Auto) 0.12 0-0.5 K/uL Basophils # (Auto) 0.02 0-0.2 K/uL RDW Standard Deviation 44.1 36.4-46.3 fL RDW Coefficient of Variation 13.4 11.5-14.5 % Immature Granulocyte % (Auto) 0.2 % Immature Granulocyte # (Auto) 0.01 0.00-0.02 K/uL Sodium Level 141 136-145 mmol/L Potassium Level 3.8 3.5-5.1 mmol/L Chloride Level 106 98-107 mmol/L Carbon Dioxide Level 30 21-32 mmol/L Anion Gap 5.0 3-11 mmol/L Blood Urea Nitrogen 8 7-18 mg/dl Creatinine 0.84 0.60-1.20 mg/dl Est Creatinine Clear Calc Drug Dose 121.9 ml/min Estimated GFR () 94.6 Estimated GFR (Non- 81.6 BUN/Creatinine Ratio 9.3 10-20 Random Glucose 100 70-99 mg/dl Calcium Level 8.2 8.5-10.1 mg/dl Magnesium Level 2.3 1.8-2.4 mg/dl Total Bilirubin 0.5 0.2-1 mg/dl Direct Bilirubin 0.1 0-0.2 mg/dl Aspartate Amino Transf (AST/SGOT) 72 15-37 U/L Alanine Aminotransferase (ALT/SGPT) 145 12-78 U/L Alkaline Phosphatase 92 45-117 U/L Total Protein 6.1 6.4-8.2 gm/dl Albumin 2.9 3.4-5.0 gm/dl Assessment & Plan 51 year old female with cholelithiasis, cholecystitis, and mild gallstone pancreatitis. Symptoms and labs improved. Plan for cholecystectomy today, however if schedule does not permit, then may perform later in the week, possibly as outpatient. Plan plan for laparoscopic cholecystectomy with possible intraoperative cholangiogram today. risks of surgery were discussed to include but not limited to bleeding, infection, damage to common bile duct, retained stone, bile leak, conversion to open, need for future or more extensive surgery, damage to surrounding structures, and risks of anesthesia plan of care discussed, all questions answered, patient expressed understanding and agrees to proceed with plan of care as stated surgery will follow, call with questions or concerns Camilo Kennedy, DO
--- NOTE | 2017-01-05 13:10 | Anesthesiology Progress Note ---
Anesthesia Progress Note Date of Service Jan 05, 2017. Progress Notes This is a 51 y/o w obese female w/cholecystitis/cholelithiasis for a laparoscopic cholecystectomy.PMHx is significant for morbid obesity,possible PASHA ,HTN,GERD(stable), and borderline anemia.Discussed anesthesia w/pt,risks vs benefits,all questions answered.Informed consent obtained. ASA 3
--- NOTE | 2017-01-05 14:29 | Progress Note ---
Internal Med Progress Note Date of Service: Jan 05, 2017. Provider Documentation: SUBJECTIVE: resting comfortably denies abdominal pain or nausea no fevers no sob plan for surgery tomorrow OBJECTIVE: Vital Signs-as noted below Exam: General-alert and awake. Not in distress. Obese ENT-normal hearing Neck-no neck masses Lungs-cta b/l no wheezing no crackles Heart-s1 and s2 heard regular rhythm, no murmurs Abdomen-soft bowel sounds present non tender no distension Extremities no erythema Neuro-alert and awake moves extremities Lab data as noted below. ASSESSMENT & PLAN: A 51-year-old female who presents with right upper quadrant pain with probable acute cholecystitis found to have cholecystitis, elevated lfts and gall stone pancreatitis.Plan for surgery in am. 1. Acute cholecystitis, Gall stone pancreatitis ultrasound done as outpatient showed cholelithiasis with gallbladder thickening, possible cholecystitis and also most likely gallbladder pancreatitis. Lipase is elevated at 8,000. MRCP shows no cbd stone but consistent with cholecystitis and gall stone pancreatitis symptoms improved iv fluids, iv abx, antiemetics plan for lap darvin tomorrow plan for clears today and npo after midnight 3. History of hypertension. Continue lisinopril. Stable. Will monitor the blood pressure. 4. Gastroesophageal reflux disease. on IV Pepcid. 5. Deep venous thrombosis prophylaxis. SCDs and heparin subQ for now. 6. Disposition. Monitor in medical floor. Expect to discharge home and follow with the family doctor. LEVEL 1 FULL CODE. Plan for d/c after lap cholecystectomy Vital Signs: Date Time Temp Pulse Resp B/P (MAP) Pulse Ox O2 Delivery O2 Flow Rate FiO2 01/05/17 15:34 36.7 59 19 130/80 (97) 92 Room Air 01/05/17 07:26 36.7 58 18 120/78 (92) 93 Room Air 01/05/17 07:10 Room Air 01/05/17 00:05 Room Air 01/04/17 23:35 36.8 59 16 123/74 (90) 94 Room Air Lab Results: Results Past 24 Hours Test 01/05/17 05:43 Range/Units White Blood Count 5.32 4.8-10.8 K/uL Red Blood Count 4.00 4.2-5.4 M/uL Hemoglobin 11.7 12.0-16.0 g/dL Hematocrit 36.0 37-47 % Mean Corpuscular Volume 90.0 80-100 fL Mean Corpuscular Hemoglobin 29.3 25-34 pg Mean Corpuscular Hemoglobin Concent 32.5 32-36 g/dl Platelet Count 181 130-400 K/uL Mean Platelet Volume 9.0 7.4-10.4 fL Neutrophils (%) (Auto) 53.9 % Lymphocytes (%) (Auto) 35.5 % Monocytes (%) (Auto) 7.7 % Eosinophils (%) (Auto) 2.3 % Basophils (%) (Auto) 0.4 % Neutrophils # (Auto) 2.87 1.4-6.5 K/uL Lymphocytes # (Auto) 1.89 1.2-3.4 K/uL Monocytes # (Auto) 0.41 0.11-0.59 K/uL Eosinophils # (Auto) 0.12 0-0.5 K/uL Basophils # (Auto) 0.02 0-0.2 K/uL RDW Standard Deviation 44.1 36.4-46.3 fL RDW Coefficient of Variation 13.4 11.5-14.5 % Immature Granulocyte % (Auto) 0.2 % Immature Granulocyte # (Auto) 0.01 0.00-0.02 K/uL Sodium Level 141 136-145 mmol/L Potassium Level 3.8 3.5-5.1 mmol/L Chloride Level 106 98-107 mmol/L Carbon Dioxide Level 30 21-32 mmol/L Anion Gap 5.0 3-11 mmol/L Blood Urea Nitrogen 8 7-18 mg/dl Creatinine 0.84 0.60-1.20 mg/dl Est Creatinine Clear Calc Drug Dose 121.9 ml/min Estimated GFR () 94.6 Estimated GFR (Non- 81.6 BUN/Creatinine Ratio 9.3 10-20 Random Glucose 100 70-99 mg/dl Calcium Level 8.2 8.5-10.1 mg/dl Magnesium Level 2.3 1.8-2.4 mg/dl Total Bilirubin 0.5 0.2-1 mg/dl Direct Bilirubin 0.1 0-0.2 mg/dl Aspartate Amino Transf (AST/SGOT) 72 15-37 U/L Alanine Aminotransferase (ALT/SGPT) 145 12-78 U/L Alkaline Phosphatase 92 45-117 U/L Total Protein 6.1 6.4-8.2 gm/dl Albumin 2.9 3.4-5.0 gm/dl
[2017-01-05 15:34] VITALS: BP 130/80; PULSE 59; TEMP 36.7; O2SAT 92
[2017-01-05 23:00] VITALS: BP 129/75; PULSE 52; TEMP 36.8; O2SAT 97
[2017-01-06] VITALS (7 sets, daily range): BP systolic 115–168; BP diastolic 70–91; PULSE 61–86; TEMP 36.7–37.1; O2SAT 93–98
[2017-01-06] MEDS: METRONIDAZOLE / NSS 500 MG in PREMIXED NSS 100 ML IV SCH ×2 (00:06→10:48)
[2017-01-06] MEDS: FAMOTIDINE IV INJ 20 MG in DEXTROSE 5% 100ML 100 ML IV SCH (04:12)
[2017-01-06] MEDS: LACTATED RINGER'S 1000ML 1,000 ML IV SCH ×2 (05:41→10:37)
[2017-01-06] MEDS: CIPROFLOXACIN / D5W 400 MG in PREMIXED IN D5W 200 ML IV SCH (05:41)
[2017-01-06] MEDS: HEPARIN SOD 5000 UNIT/0.5 ML CARP SQ SCH (05:42)
[2017-01-06 06:18] LABS: BASO % 0.3 %; BASO ABS # 0.02 K/uL (0-0.2); COMPLETE YES; EOS % 2.8 %; HEMATOCRIT 37.8 % (37-47); IG% 0.2 %; LYMPH % 32.8 %; LYMPH ABS # 2.08 K/uL (1.2-3.4); MEAN CELL VOLUME 89.8 fL (80-100); MEAN CORPUSCULAR HEMOGLOBIN 29.2 pg (25-34); MEAN CORPUSCULAR HGB CONC 32.5 g/dl (32-36); MEAN PLATELET VOLUME 9.1 fL (7.4-10.4); MONO % 6.1 %; NEUT % 57.8 %; PLATELET COUNT 194 K/uL (130-400); RED BLOOD COUNT 4.21 M/uL (4.2-5.4); WHITE BLOOD COUNT 6.35 K/uL (4.8-10.8)
[2017-01-06] MEDS ORDERED: GLYCOPYRROLATE INJ 0.2 MG/ML VIAL ONE ×2 (06:30→07:39)
[2017-01-06] MEDS ORDERED: MIDAZOLAM HCL 1 MG/ML 2ML VIAL ONE (06:30)
[2017-01-06] MEDS ORDERED: ROCURONIUM BROMIDE 10 MG/ML 5 ML VIAL IV ONE ×2 (06:30→07:39)
[2017-01-06] MEDS ORDERED: ONDANSETRON INJ 2 MG/ML 2 ML VIAL ONE (06:30)
[2017-01-06] MEDS ORDERED: PROPOFOL IV EMULSION 10 MG/ML 20 ML VIAL IV ONE (06:30)
[2017-01-06] MEDS ORDERED: NEOSTIGMINE METHYLSULFATE 5 MG/5 ML SYR ONE (06:30)
[2017-01-06] MEDS ORDERED: DEXAMETHASONE SOD INJ 4 MG/ML VIAL ONE (06:30)
[2017-01-06] MEDS ORDERED: LIDOCAINE HCL 2% 2 ML VIAL (20MG/ML) ONE (06:30)
[2017-01-06] MEDS ORDERED: FENTANYL CITRATE INJ 50 MCG/1 ML 2 ML VIAL ONE (06:30)
[2017-01-06 06:51] LABS: BUN/CREATININE RATIO 7.3 (10-20); CALCIUM 8.1 mg/dl (8.5-10.1); CREATININE 0.88 mg/dl (0.60-1.20); MAGNESIUM 2.1 mg/dl (1.8-2.4); POTASSIUM 3.7 mmol/L (3.5-5.1)
--- NOTE | 2017-01-06 06:52 | Surgery Progress Note ---
Surgery Progress Note Date of Service Jan 06, 2017. Subjective 51 year old female with cholelithiasis with cholecystitis and gallstone pancreatitis. MRCP negative. Labs and symptoms continue to improve, no pain, tolerated low diet yesterday, NPO since midnight, ready for surgery today. Objective Vital Signs: Date Time Temp Pulse Resp B/P (MAP) Pulse Ox O2 Delivery O2 Flow Rate FiO2 01/06/17 06:19 36.7 61 16 168/91 (116) 98 Room Air 01/06/17 00:11 Room Air 01/05/17 23:00 36.8 52 18 129/75 (93) 97 Room Air 01/05/17 17:06 Room Air 01/05/17 15:34 36.7 59 19 130/80 (97) 92 Room Air 01/05/17 07:26 36.7 58 18 120/78 (92) 93 Room Air 01/05/17 07:10 Room Air General Appearance: WD/WN, no apparent distress, + obese Head: normocephalic, atraumatic Neck: supple, no adenopathy, thyroid normal, no JVD, no carotid bruits, trachea midline Respiratory/Chest: chest non-tender, lungs clear, normal breath sounds, no respiratory distress, no accessory muscle use Cardiovascular: regular rate, rhythm, no edema, no gallop, no JVD, no murmur Abdomen: normal bowel sounds, non tender, non distended, soft, no organomegaly , no pulsatile mass Extremities: normal range of motion, non-tender, normal inspection, no pedal edema, no calf tenderness, normal capillary refill, pelvis stable Laboratory Results: Results Past 24 Hours Test 01/06/17 05:52 Range/Units White Blood Count 6.35 4.8-10.8 K/uL Red Blood Count 4.21 4.2-5.4 M/uL Hemoglobin 12.3 12.0-16.0 g/dL Hematocrit 37.8 37-47 % Mean Corpuscular Volume 89.8 80-100 fL Mean Corpuscular Hemoglobin 29.2 25-34 pg Mean Corpuscular Hemoglobin Concent 32.5 32-36 g/dl Platelet Count 194 130-400 K/uL Mean Platelet Volume 9.1 7.4-10.4 fL Neutrophils (%) (Auto) 57.8 % Lymphocytes (%) (Auto) 32.8 % Monocytes (%) (Auto) 6.1 % Eosinophils (%) (Auto) 2.8 % Basophils (%) (Auto) 0.3 % Neutrophils # (Auto) 3.67 1.4-6.5 K/uL Lymphocytes # (Auto) 2.08 1.2-3.4 K/uL Monocytes # (Auto) 0.39 0.11-0.59 K/uL Eosinophils # (Auto) 0.18 0-0.5 K/uL Basophils # (Auto) 0.02 0-0.2 K/uL RDW Standard Deviation 43.8 36.4-46.3 fL RDW Coefficient of Variation 13.3 11.5-14.5 % Immature Granulocyte % (Auto) 0.2 % Immature Granulocyte # (Auto) 0.01 0.00-0.02 K/uL Assessment & Plan 51 year old female with cholelithiasis, cholecystitis, and mild gallstone pancreatitis, now resolved. Plan plan for laparoscopic cholecystectomy with possible intraoperative cholangiogram today. risks of surgery were discussed to include but not limited to bleeding, infection, damage to common bile duct, retained stone, bile leak, conversion to open, need for future or more extensive surgery, damage to surrounding structures, and risks of anesthesia plan of care discussed, all questions answered, patient expressed understanding and agrees to proceed with plan of care as stated surgery will follow, call with questions or concerns possible d/c this afternoon Camilo Kennedy, DO
[2017-01-06] MEDS ORDERED: CONRAY 60% 50 ML VIAL ONE (06:55)
[2017-01-06] MEDS ORDERED: BUPIVACAINE 0.5 % 5 MG/1 ML MPF 30ML VIAL ONE (07:01)
[2017-01-06] MEDS ORDERED: ALBUTEROL HFA INHALER 8.5 GM INH ONE (07:39)
[2017-01-06] MEDS ORDERED: LARYING-O-JET KIT (LTA) ONE ×2 (07:39)
[2017-01-06] MEDS ORDERED: ATROPINE SULFATE 0.1 MG/ML 5ML SYR IV PRN (08:00)
[2017-01-06] MEDS ORDERED: ONDANSETRON INJ 2 MG/ML 2 ML VIAL IV PRN (08:00)
[2017-01-06] MEDS ORDERED: HYDROmorphone INJ 1 MG/ML SYR IV PRN (08:00)
[2017-01-06] MEDS ORDERED: EpHEDrine SULFATE INJ 50 MG/ML AMP IV PRN (08:00)
[2017-01-06] MEDS ORDERED: EpHEDrine SULFATE 50MG/5ML SYR ONE (08:13)
[2017-01-06] MEDS ORDERED: IOPAMIDOL 15 ML IV ONE (08:16)
--- NOTE | 2017-01-06 08:21 | DIAGNOSTIC IMAGING REPORT ---
CHOLANGIOGRAM O.R. CLINICAL HISTORY: 51 years-old Female presenting with CHOLANGIOGRAM. TECHNIQUE: Fluoroscopy was provided for an intraoperative cholangiogram status post cholecystectomy. Contrast was injected through the cystic duct remnant. COMPARISON: MRCP from 01/03/2017. FINDINGS: The common bile duct is normal in course and caliber. There is suggestion of an elongated filling defect in the distal common duct near the ampulla Vater suggesting possible calculus versus gas. The cystic duct is either obstructed in the setting of acute cholecystitis or consistent with the cystic duct remnant. No significant intrahepatic biliary ductal dilatation. Contrast extends into the small bowel. Fluoroscopy dosage (mGy): Not available. Fluoroscopy time: 23.9 seconds. Number of fluoroscopic spot images: 4. IMPRESSION: Fluoroscopy provided for an intraoperative cholangiogram. Possible filling defect within the distal common duct, choledocholithiasis versus focus of gas. Cystic duct remnant versus obstructed cystic duct. Electronically signed by: Lito Gastelum M.D. 01/06/2017 8:20 AM Dictated Date/Time: 01/06/2017 8:14 AM
--- NOTE | 2017-01-06 08:42 | [facility] Post Operative Brief Note ---
Immediate Operative Summary Operative Date Jan 06, 2017. Pre-Operative Diagnosis Cholelithiasis, Cholecystitis, mild gallstone Pancreatitis Post-Operative Diagnosis same Procedure(s) Performed Laparoscopic Cholecystectomy with Cholangiogram Surgeon Dr. Kennedy Table Games Floor Supervisor Surgeon(s) Doron Hodges PA-C Estimated Blood Loss 3 ml Findings moderate inflammation, window of safety obtained. Cholangiogram with flow into duodenum, no filling defects on my read. cystic duct doubly clipped and divided. good hemostasis. Specimens a. gallbladder Drains None Anesthesia GETA Complication(s) None Disposition Recovery Room / PACU
[2017-01-06] MEDS ORDERED: OXYC-57 PO (08:43)
--- NOTE | 2017-01-06 08:43 | Discharge Instructions ---
Discharge Instructions Date of Service Jan 06, 2017. Admission Reason for Admission: Cholecystitis,Pancreatitis Discharge Discharge Diagnosis / Problem: laparoscopic cholecystectomy Discharge Goals Goal(s): Decrease discomfort Activity Recommendations Activity Limitations: as noted below Lifting Limitations: no more than 10 pounds Shower/Bathe: no limitations Driving or Machine Use: resume 3 days after discharge (if not taking Percocet) . Instructions / Follow-Up Instructions / Follow-Up Followup with Dr. Kennedy in 2 weeks, call [phone] to schedule, [address] Platt may take ibuprofen 600 mg every 6 hours as needed in addition to Percocet. Followup with family doctor Sandy Montgomery on Jan 12 at 11:05am Current Hospital Diet Patient's current hospital diet: Low Fat Diet Discharge Diet Recommended Diet: Low Fat Diet (for a few days) Procedures Procedures Performed: Laparoscopic Cholecystectomy with Cholangiogram Pending Studies Studies pending at discharge: no Medical Emergencies . Who to Call and When: Medical Emergencies: If at any time you feel your situation is an emergency, please call 911 immediately. . Non-Emergent Contact Non-Emergency issues call your: Primary Care Provider, Surgeon Call Non-Emergent contact if: you have a fever, temperature is above 101.5, your pain is not controlled, wound has increased pain, you have any medication questions . "Provider Documentation" section prepared by Darrian Mejia. . VTE Core Measure Inpt VTE Proph given/why not?: SCD's [place] Drug Monitoring Program Search Results: no issues identified
[2017-01-06] MEDS ORDERED: MoRPHine SULFATE 4 MG/ML 1 ML CARP\\VIAL IV PRN (08:45)
[2017-01-06] MEDS ORDERED: OXYCODONE/ACETAMINOPHEN 5-325 TAB PO PRN (08:45)
--- NOTE | 2017-01-06 08:57 | [facility] Operative Report ---
Operative Report Operative Date Jan 06, 2017. Pre-Operative Diagnosis Cholelithiasis, Cholecystitis, mild gallstone Pancreatitis Post-Operative Diagnosis same Procedure(s) Performed laparoscopic cholecystectomy with intraoperative cholangiogram Surgeon Dr. Kennedy Journal Box Inspector Surgeon(s) Doron Hodges PA-C Estimated Blood Loss 3 ml Findings moderate inflammation, window of safety obtained. Cholangiogram with flow into duodenum, no filling defects on my read. cystic duct doubly clipped and divided. good hemostasis. Specimens a. gallbladder Drains None Anesthesia GETA Complication(s) None Disposition Recovery Room / PACU Indications 51 year old female admitted with gallstone pancreatitis and choledocholithiasis , MRCP negative. Pancreatitis resolved and planned for laparoscopic cholecystectomy with possible intraoperative cholangiogram. The risks of the procedure were discussed, all questions were answered, and the patient agreed to proceed with surgery as planned. Description of Procedure The patient was properly identified, consented, and taken to the operating room where she was placed in the supine position. General endotracheal anesthesia was induced. SCDs and a safety belt were placed. Preoperative antibiotics were administered on the floor. The patient's abdomen was prepped and draped in the standard sterile fashion. A surgical timeout was performed and all parties were in agreement that this was the correct patient and procedure to be performed and we continued as planned. A stab incision was made in the left upper quadrant and the veress needle was inserted. Saline drop test confirmed entry into the peritoneum and the abdomen was insulfflated. A 5mm port was placed in the rectus muscle to the left and superior to the umbilicus using the optiview technique. The abdomen was insufflated with carbon dioxide which the patient tolerated without incident. The laparoscope was inserted and no damage from initial trocar or veress placement was noted, no gross abnormalities were noted within the 4 quadrants of the abdomen. An 11 mm port was then placed in the subxiphoid position in the midline and two 5mm ports were placed in the right subcostal position. The patient was placed in reverse Trendelenburg position and rotated towards the left. The dome of the gallbladder was retracted towards the left upper quadrant and the infundibulum was retracted toward the right lower quadrant revealing Calot' s triangle. Peritoneal attachments were taken down with electrocautery and blunt dissection. The cystic duct and artery were circumferentially dissected. A window of safety was obtained showing the cystic duct entering the gallbladder with no aberrant structures noted. The [facility] cholangiocatheter was then used to perform an intraoperative cholangiogram which on my read showed no filling defects, and good filling of the duodenum and hepatic radicals with contrast. The cystic duct and artery were doubly clipped and divided. The gallbladder was then lifted off the gallbladder fossa with electrocautery. The gallbladder was placed in an Endo Catch bag and removed through the umbilical port site. The right upper quadrant was irrigated and hemostasis was found to be good. The subxiphoid port site fascia was closed with 0 Vicryl suture using the suture passer. 5 mm trochars were removed under direct visualization and the abdomen was allowed to collapse. The wound was irrigated, and the skin of all ports was closed with 4-0 Monocryl subcuticular sutures. Dermabond was placed over the wounds. The patient was extubated in the operating room and taken to the PACU where she recovered without apparent incident. All sponge, instrument and needle counts were correct at the conclusion of the procedure. The patient tolerated the procedure well. After the procedure the radiology report was reviewed and showed possible air bubble versus filling defect in the distal common bile duct. This will be discussed with the patient. I attest to the content of the Intraoperative Record and any orders documented therein. Any exceptions are noted below.
[2017-01-06] MEDS: FENTANYL CITRATE INJ 50 MCG/1 ML 2 ML VIAL IV PRN ×4 (09:09→09:24)
--- NOTE | 2017-01-06 09:52 | Anesthesiology Progress Note ---
Anesthesia Post Op Note Date & Time Jan 06, 2017 at 09:51 Vital Signs Pain Intensity: 4 Vital Signs Past 12 Hours Date Time Temp Pulse Resp B/P (MAP) Pulse Ox O2 Delivery O2 Flow Rate FiO2 01/06/17 09:45 36.5 59 18 153/68 94 Nasal Cannula 2 Oxymask 01/06/17 09:35 60 18 151/69 94 Nasal Cannula 2 Oxymask 01/06/17 09:25 57 18 144/67 93 Nasal Cannula 2 Oxymask 01/06/17 09:15 60 20 151/69 96 Oxymask 01/06/17 09:05 66 20 149/77 100 Oxymask 10 01/06/17 08:55 65 20 149/76 100 Oxymask 10 01/06/17 08:46 36.2 20 163/77 98 Oxymask 10 01/06/17 06:19 36.7 61 16 168/91 (116) 98 Room Air 01/06/17 00:11 Room Air 01/05/17 23:00 36.8 52 18 129/75 (93) 97 Room Air Notes Mental Status: alert / awake / arousable, participated in evaluation Pt Amnestic to Procedure: Yes Nausea / Vomiting: adequately controlled Pain: adequately controlled Airway Patency, RR, SpO2: stable & adequate BP & HR: stable & adequate Hydration State: stable & adequate Anesthetic Complications: no major complications apparent
[2017-01-06] MEDS: LISINOPRIL 10 MG TAB PO SCH (10:38)
--- NOTE | 2017-01-06 14:02 | Progress Note ---
Internal Med Progress Note Date of Service: Jan 06, 2017. Provider Documentation: SUBJECTIVE: s/p lap darvin sitting on the chair comfortably' afebrile' no nausea no abdominal pain no sob OBJECTIVE: Vital Signs-as noted below Exam: General-alert and awake. Not in distress. Obese ENT-normal hearing Neck-no neck masses Lungs-cta b/l no wheezing no crackles Heart-s1 and s2 heard regular rhythm, no murmurs Abdomen-soft bowel sounds present s/p lap darvin no distension Extremities no erythema Neuro-alert and awake moves extremities Lab data as noted below. ASSESSMENT & PLAN: A 51-year-old female who presents with right upper quadrant pain with probable acute cholecystitis found to have cholecystitis, elevated lfts and gall stone pancreatitis.Plan for surgery in am. 1. Acute cholecystitis, Gall stone pancreatitis ultrasound done as outpatient showed cholelithiasis with gallbladder thickening, possible cholecystitis and also most likely gallbladder pancreatitis. Lipase is elevated at 8,000. MRCP shows no cbd stone but consistent with cholecystitis and gall stone pancreatitis symptoms improved s/p lap darvin today if tolerating diet plan to d/c home later today 3. History of hypertension. Continue lisinopril. Stable. Will monitor the blood pressure. 4. Gastroesophageal reflux disease. on IV Pepcid. 5. Deep venous thrombosis prophylaxis. SCDs and heparin subQ for now. 6. Disposition. Monitor in medical floor. Expect to discharge home and follow with the family doctor. LEVEL 1 FULL CODE. possible d/c home later in day Vital Signs: Date Time Temp Pulse Resp B/P (MAP) Pulse Ox O2 Delivery O2 Flow Rate FiO2 01/06/17 13:05 37.0 86 19 115/70 (85) 94 Room Air 01/06/17 12:44 Nasal Cannula 4.0 01/06/17 12:43 Room Air 01/06/17 12:05 36.8 70 19 129/73 (91) 96 Nasal Cannula 2.0 01/06/17 11:05 36.7 70 18 136/80 (98) 93 Nasal Cannula 2.0 01/06/17 10:35 37.1 67 16 146/77 (100) 94 Nasal Cannula 2.0 01/06/17 10:05 37.0 67 10 131/75 (93) 96 4.0 01/06/17 09:55 36.6 67 18 150/71 94 Nasal Cannula 2 Oxymask 01/06/17 09:45 36.5 59 18 153/68 94 Nasal Cannula 2 Oxymask 01/06/17 09:35 60 18 151/69 94 Nasal Cannula 2 Oxymask 01/06/17 09:25 57 18 144/67 93 Nasal Cannula 2 Oxymask 01/06/17 09:15 60 20 151/69 96 Oxymask 01/06/17 09:05 66 20 149/77 100 Oxymask 10 01/06/17 08:55 65 20 149/76 100 Oxymask 10 01/06/17 08:46 36.2 20 163/77 98 Oxymask 10 01/06/17 06:19 36.7 61 16 168/91 (116) 98 Room Air 01/06/17 00:11 Room Air 01/05/17 23:00 36.8 52 18 129/75 (93) 97 Room Air 01/05/17 17:06 Room Air 01/05/17 15:34 36.7 59 19 130/80 (97) 92 Room Air Lab Results: Results Past 24 Hours Test 01/06/17 05:52 Range/Units White Blood Count 6.35 4.8-10.8 K/uL Red Blood Count 4.21 4.2-5.4 M/uL Hemoglobin 12.3 12.0-16.0 g/dL Hematocrit 37.8 37-47 % Mean Corpuscular Volume 89.8 80-100 fL Mean Corpuscular Hemoglobin 29.2 25-34 pg Mean Corpuscular Hemoglobin Concent 32.5 32-36 g/dl Platelet Count 194 130-400 K/uL Mean Platelet Volume 9.1 7.4-10.4 fL Neutrophils (%) (Auto) 57.8 % Lymphocytes (%) (Auto) 32.8 % Monocytes (%) (Auto) 6.1 % Eosinophils (%) (Auto) 2.8 % Basophils (%) (Auto) 0.3 % Neutrophils # (Auto) 3.67 1.4-6.5 K/uL Lymphocytes # (Auto) 2.08 1.2-3.4 K/uL Monocytes # (Auto) 0.39 0.11-0.59 K/uL Eosinophils # (Auto) 0.18 0-0.5 K/uL Basophils # (Auto) 0.02 0-0.2 K/uL RDW Standard Deviation 43.8 36.4-46.3 fL RDW Coefficient of Variation 13.3 11.5-14.5 % Immature Granulocyte % (Auto) 0.2 % Immature Granulocyte # (Auto) 0.01 0.00-0.02 K/uL Sodium Level 141 136-145 mmol/L Potassium Level 3.7 3.5-5.1 mmol/L Chloride Level 107 98-107 mmol/L Carbon Dioxide Level 29 21-32 mmol/L Anion Gap 5.0 3-11 mmol/L Blood Urea Nitrogen 6 7-18 mg/dl Creatinine 0.88 0.60-1.20 mg/dl Est Creatinine Clear Calc Drug Dose 116.3 ml/min Estimated GFR () 89.4 Estimated GFR (Non- 77.2 BUN/Creatinine Ratio 7.3 10-20 Random Glucose 103 70-99 mg/dl Calcium Level 8.1 8.5-10.1 mg/dl Magnesium Level 2.1 1.8-2.4 mg/dl Total Bilirubin 0.5 0.2-1 mg/dl Direct Bilirubin 0.1 0-0.2 mg/dl Aspartate Amino Transf (AST/SGOT) 46 15-37 U/L Alanine Aminotransferase (ALT/SGPT) 108 12-78 U/L Alkaline Phosphatase 89 45-117 U/L Total Protein 6.2 6.4-8.2 gm/dl Albumin 3.0 3.4-5.0 gm/dl
--- NOTE | 2017-01-14 12:44 | Discharge Summary ---
Discharge Summary Date of Service Jan 14, 2017. Discharge Summary Admission Date: Jan 03, 2017 at 14:49 Discharge Date: Jan 06, 2017 Discharge Disposition: Home Principal Diagnosis: gall stone pancreatitis acute cholecystitis s/p lap darvin Secondary Diagnoses/Problems: hypertension, morbid obesity, Procedures: mrcp: 1. Cholelithiasis, gallbladder wall thickening, and pericholecystic fluid. The findings are suggestive of acute cholecystitis. 2. No evidence of intrarectal hepatic biliary ductal dilatation. The common buttock measures 5 mm 3. No common bile duct calculi identified 4. Normal caliber pancreatic duct. Possible pancreatic edema. This may indicate pancreatitis 5. Mild splenomegaly s/p lap darvin Consultations: GENERAL SURGERY Medication Reconciliation New Medications: Oxycodone/Acetaminophen 5MG/325MG (Percocet 5MG/325MG) Tab 1-2 TABLETS PO Q4H PRN for Pain, #30 TAB Continued Medications: Lisinopril (Prinivil) 10 Mg Tab 10 MG PO DAILY, TAB Omeprazole (Prilosec) 10 Mg Cap 10 MG PO DAILY for GI Upset, CAP Admission Information HPI (per Admitting provider): This is a 51-year-old female with past medical history significant for hypertension, morbid obesity, presents with right upper quadrant abdominal pain. The patient says since she ate a cheeseburger last night she noticed significant right upper quadrant abdominal pain. She took her omeprazole but the pain did not go away. It was about 10/10 in severity, radiating to her back associated with nausea and vomited 3 times. She went to family doctor today where ultrasound was done which showed gallstones and possible cholecystitis and she was advised to come to the ER. Currently, pain is better. Denies any fever or chills. She was short of breath at onset of pain. Denies any chest pain, no headaches, no blurred vision, no dizziness, no sore throat. Normal bowel and bladder movements. No skin rash, no swelling in the legs. The patient says she had a similar kind of attack in May when she was in [facility]. At that time labs were done which was unremarkable and she was told she has peptic ulcer disease. She was prescribed omeprazole and then she had a couple more attacks, but they were not as severe as last one she had last night. Currently, she is resting comfortably and hemodynamically stable. Physical Exam (per Admitting): GENERAL: The patient is morbidly obese, not in distress. VITAL SIGNS: Temperature 36.8, pulse 88, respiratory rate 20, blood pressure 151/88, oxygen 96% on room air. HEAD, EYES, EARS, NOSE, AND THROAT: No pallor, no icterus. Pupils equal, round, and reactive to light. NECK: No JVD, no neck masses, no carotid bruits. CARDIOVASCULAR: S1, S2, heart regular rate and rhythm, no murmur, no gallop. RESPIRATORY SYSTEM: Normal AP diameter. No accessory muscle use. No wheezing, no crackles. ABDOMEN: Soft, bowel sounds present. Right upper quadrant and epigastric tenderness present. No guarding, no rigidity, no distention. CENTRAL NERVOUS SYSTEM: Cranial nerves II-XII grossly intact. Nonfocal. EXTREMITIES: No edema, chronic lower extremity edema seen. Hospital Course A 51-year-old female who presents with right upper quadrant pain with probable acute cholecystitis found to have cholecystitis, elevated lfts and gall stone pancreatitis.Plan for surgery in am. 1. Acute cholecystitis, Gall stone pancreatitis ultrasound done as outpatient showed cholelithiasis with gallbladder thickening, possible cholecystitis and also most likely gallbladder pancreatitis. Lipase is elevated at 8,000. MRCP shows no cbd stone but consistent with cholecystitis and gall stone pancreatitis symptoms improved s/p lap darvin today if tolerating diet plan to d/c home later today 3. History of hypertension. Continue lisinopril. Stable. Will monitor the blood pressure. 4. Gastroesophageal reflux disease. on IV Pepcid. 5. Deep venous thrombosis prophylaxis. SCDs and heparin subQ for now. 6. Disposition. Monitor in medical floor. Expect to discharge home and follow with the family doctor. LEVEL 1 FULL CODE. possible d/c home later in day Total time spent on discharge = 35MINUTES This includes examination of the patient, discharge planning, medication reconciliation, and communication with other providers. Discharge Instructions Discharge Instructions Date of Service Jan 06, 2017. Admission Reason for Admission: Cholecystitis,Pancreatitis Discharge Discharge Diagnosis / Problem: laparoscopic cholecystectomy Discharge Goals Goal(s): Decrease discomfort Activity Recommendations Activity Limitations: as noted below Lifting Limitations: no more than 10 pounds Shower/Bathe: no limitations Driving or Machine Use: resume 3 days after discharge (if not taking Percocet) . Instructions / Follow-Up Instructions / Follow-Up Followup with Dr. Kennedy in 2 weeks, call [phone] to schedule, [address] Platt may take ibuprofen 600 mg every 6 hours as needed in addition to Percocet. Followup with family doctor Sandy Montgomery on Jan 12 at 11:05am Current Hospital Diet Patient's current hospital diet: Low Fat Diet Discharge Diet Recommended Diet: Low Fat Diet (for a few days) Procedures Procedures Performed: Laparoscopic Cholecystectomy with Cholangiogram Pending Studies Studies pending at discharge: no Medical Emergencies . Who to Call and When: Medical Emergencies: If at any time you feel your situation is an emergency, please call 911 immediately. . Non-Emergent Contact Non-Emergency issues call your: Primary Care Provider, Surgeon Call Non-Emergent contact if: you have a fever, temperature is above 101.5, your pain is not controlled, wound has increased pain, you have any medication questions . "Provider Documentation" section prepared by Darrian Mejia. . VTE Core Measure Inpt VTE Proph given/why not?: SCD's [place] Drug Monitoring Program Search Results: no issues identified
== END 2017-01-06 15:17 | disposition home or self-care (01) | DRG 417 ==
LOC: C.EDB 12:28 → C.MSW 14:49 → ENRESERV 15:20
PROVIDERS: ADMIT Internal Medicine; ATTEND Internal Medicine
PROC: 0FB44ZZ Excision of Gallbladder, Percutaneous Endoscopic Approach (ICD-10-PCS; principal; 2017-01-06 07:15)
DX: K80.00 Calculus of gallbladder with acute cholecystitis without obstruction (principal); K85.10 Biliary acute pancreatitis without necrosis or infection; Z68.42 Body mass index [BMI] 45.0-49.9, adult; K21.9 Gastro-esophageal reflux disease without esophagitis; I10 Essential (primary) hypertension; E66.01 Morbid (severe) obesity due to excess calories

== ENCOUNTER → 2017-01-03 | Outpatient (CLI) | payer BC ==
[~2017-01-03] MED LIST: LISI10TA PO; OMEP10CA4 PO; OXYC-57 PO
--- NOTE | 2017-01-03 11:56 | DIAGNOSTIC IMAGING REPORT ---
BILIARY ULTRASOUND CLINICAL HISTORY: Upper quadrant abdominal pain COMPARISON STUDY: No previous studies for comparison. FINDINGS: The pancreas appears normal as visualized. No focal hepatic masses were evident. There is no right-sided hydronephrosis. There is no intra or extrahepatic biliary ductal dilatation. The common bile duct measured 5 mm. Multiple gallstones were visualized. There is mild gallbladder wall thickening. IMPRESSION: Cholelithiasis and gallbladder wall thickening. In the setting of right upper quadrant abdominal pain, acute cholecystitis cannot be excluded. If deemed clinically necessary, correlation with a nuclear medicine hepatobiliary study could be obtained in follow-up to assess cystic duct patency Electronically signed by: Matthieu Fair M.D. 01/03/2017 11:55 AM Dictated Date/Time: 01/03/2017 11:53 AM
== END | disposition home or self-care (01) ==
LOC: C.ULTR 11:09
PROVIDERS: ATTEND Family Medicine
DX: R10.13 Epigastric pain (principal); K80.20 Calculus of gallbladder without cholecystitis without obstruction